=== PATIENT | female | born 1945 | race Caucasian/White ===

== ENCOUNTER → 2016-07-08 | Outpatient (CLI) | payer OTHER, MEDICARE ==
--- NOTE | 2016-07-08 17:01 | CR ---
EXAMINATION: Pelvis and left hip HISTORY: Pain COMPARISON: None TECHNIQUE: AP pelvis and 2 views of the left hip FINDINGS: There is no acute osseous abnormality, dislocation, or fracture identified. Bone mineraliz ation and joint spaces appear normal. SI joints appear symmetric. The iliopectineal lines are intact . IMPRESSION: Grossly unremarkable pelvis and right hip.
== END ==
LOC: MW.CHORTHO 07:45
PROVIDERS: ATTEND Orthopaedic Surgery
DX: M70.62 Trochanteric bursitis, left hip (principal)
CPT/HCPCS: 20610; 73502; G0463; J1040

== ENCOUNTER 2017-07-14 15:20 | Emergency (ER) | payer MEDICARE, OTHER ==
--- NOTE | 2017-07-14 15:45 | EDM.PDOC ---
ED HPI GENERAL MEDICAL PROBLEM - General Chief Complaint: General Stated Complaint: PT LIPS ARE SWOLLEN Time Seen by Provider: 07/14/17 15:22 Source of Information: Reports: Patient History Limitations: Reports: No Limitations - History of Present Illness INITIAL COMMENTS - FREE TEXT/NARRATIVE: History of present illness: []Patient started having swelling of her upper lip at 11:00 in her lower lip around 2:00. She took Benadryl prior to arrival and is showing some improvement. She denies having any itchiness of her tongue, difficulty swallowing or difficulty breathing at any time. They think she can think of that is new is using Biofreeze today. Review of systems: As per history of present illness and below otherwise all systems reviewed and negative. Past medical history: As per history of present illness and as reviewed below otherwise noncontributory. Surgical history: As per history of present illness and as reviewed below otherwise noncontributory. Social history: No reported history of drug or alcohol abuse. Family history: As per history of present illness and as reviewed below otherwise noncontributory. Physical exam: General: Well developed, well nourished in NAD HEENT: Atraumatic, mild edema of her lips lower worse than the upper. There is no tongue swelling, pupils reactive, negative for conjunctival pallor or scleral icterus, mucous membranes moist, throat clear, neck supple, nontender, trachea midline. No stridor Lungs: Clear to auscultation, breath sounds equal bilaterally, chest nontender. No wheezing Heart: S1S2, regular, negative for clicks, rubs, or JVD. Abdomen: Soft, nondistended, nontender. Negative for masses or hepatosplenomegaly. Negative for costovertebral tenderness. Pelvis: Stable nontender. Genitourinary: Deferred. Rectal: Deferred. Extremities: Atraumatic, negative for cords or calf pain. Neurovascular unremarkable. Neuro: Awake, alert, oriented. Cranial nerves II through XII unremarkable. Cerebellum unremarkable. Motor and sensory unremarkable throughout. Exam nonfocal. skin: No rashes Diagnostics: [] Therapeutics: [] Impression: []Allergic reaction Plan: []Benadryl every 4 hours follow up with primary care if any difficulty breathing or swallowing or itching of tong occurs return to ER. Definitive disposition and diagnosis as appropriate pending reevaluation and review of above. bilateral thumbs Pain Score (Numeric/FACES): 4 - Related Data Allergies Allergy/AdvReac Type Severity Reaction Status Date / Time acetaminophen [From Vicodin] Allergy Vomiting Verified 07/14/17 15:51 gabapentin Allergy Irritabilit Verified 07/14/17 15:51 y hydrocodone bitartrate Allergy Vomiting Verified 07/14/17 15:51 [From Vicodin] tramadol HCl [From Ultram] Allergy Vomiting Verified 07/14/17 15:51 Home Meds: Home Meds Erythromycin Base [Erythromycin 0.5% Ophth Oint] 1 applic PO DAILY 04/30/15 [ History] Past Medical History HEENT History: Reports: Hard of Hearing Other HEENT History: Hearing aid on Right Gastrointestinal History: Reports: Colon Polyp, Other (See Below) Other Gastrointestinal History: hx: Gastric Ulcer Musculoskeletal History: Reports: Fibromyalgia Other Musculoskeletal History: hx Fracture to Left ankle Neurological History: Reports: Migraines Other Neuro History: No migraines for years but still get headaches Endocrine/Metabolic History: Reports: Hyperparathyroidism Other Endocrine/Metabolic History: hx;: Surgery for excision of Parathyroid gland - Past Surgical History Female Surgical History: Reports: Hysterectomy Social & Family History - Tobacco Use Smoking Status *Q: Never Smoker - Recreational Drug Use Recreational Drug Use: No Drug Use in Last 12 Months: No ED ROS GENERAL - Review of Systems Review Of Systems: See Below (See history of present illness) ED EXAM, GENERAL - Physical Exam Exam: See Below (See history of present illness) Course - Vital Signs Last Recorded V/S: Last Vital Signs Temp 97.8 F 07/14/17 15:49 Pulse 68 07/14/17 15:49 Resp 18 07/14/17 15:49 BP 132/65 07/14/17 15:49 Pulse Ox 95 07/14/17 15:49 Departure - Departure Time of Disposition: 16:04 Disposition: Home, Self-Care 01 Condition: Good Clinical Impression: Allergic reaction Qualifiers: Encounter type: initial encounter Qualified Code(s): T78.40XA - Allergy, unspecified, initial encounter - Discharge Information Referrals: Alistair Cisneros MD [Primary Care Provider] - Forms: ED Department Discharge Additional Instructions: The following information is given to patients seen in the emergency department who are being discharged to home. This information is to outline your options for follow-up care. We provide all patients seen in our emergency department with a follow-up referral. The need for follow-up, as well as the timing and circumstances, are variable depending upon the specifics of your emergency department visit. If you don't have a primary care physician on staff, we will provide you with a referral. We always advise you to contact your personal physician following an emergency department visit to inform them of the circumstance of the visit and for follow-up with them and/or the need for any referrals to a consulting specialist. The emergency department will also refer you to a specialist when appropriate. This referral assures that you have the opportunity for follow-up care with a specialist. All of these measure are taken in an effort to provide you with optimal care, which includes your follow-up. Under all circumstances we always encourage you to contact your private physician who remains a resource for coordinating your care. When calling for follow-up care, please make the office aware that this follow-up is from your recent emergency room visit. If for any reason you are refused follow-up, please contact the [facility] Emergency Department at and asked to speak to the emergency department charge nurseMikey Cowart every 4 hours follow up with primary care return immediately to ER if any itching of the tongue or throat, shortness of breath or difficulty swallowing occurs. [facility] [address] [place] [id number]
[2017-07-14 15:51] VITALS: BP 132/65
== END 2017-07-14 16:12 | disposition home or self-care (01) ==
LOC: MW.ED 15:20
DX: T78.40XA Allergy, unspecified, initial encounter (principal); R60.0 Localized edema; Z88.1 Allergy status to other antibiotic agents; Z88.5 Allergy status to narcotic agent; X58.XXXA Exposure to other specified factors, initial encounter
CPT/HCPCS: 99282; 99283

== ENCOUNTER 2017-11-24 07:39 | Day surgery (SDC) | payer MEDICARE, OTHER ==
[~2017-11-24 07:39] MED LIST: Bupivacaine 25%/EPINEPHrine/PF 30 ML ONE; Dexamethasone/Tobramycin 0.1-0.3% Ophth Oint 3.5 GM Tube ONE; Dexamethasone/Tobramycin 0.1-0.3% Ophth Susp 2.5 ML Bottle ONE; Lidocaine 2% 5 ML SDV ONE; Octyl 2-Cyanoacrylate 1 Tube ONE; Propofol 200 MG/20 ML SDV ONE; Tetracaine 0.5% Ophth Soln 15 ML Bottle ONE; Triamcinolone Acetonide 40 MG/ML 1 ML MDV ONE; ceFAZolin/Dextrose,Iso-Osmotic 2 GM/50 ML Duplex Bag IV ONE; fentaNYL 100 MCG/2 ML SDV ONE
[2017-11-24] MEDS ORDERED: ceFAZolin 2 GM in Premix Bag 1 BAG IV ONE (08:00)
[2017-11-24] MEDS ORDERED: Bupivacaine 0.25%/EPINEPHrine 1:200,000 10 ML SDV INJECT ONE (08:00)
[2017-11-24] MEDS ORDERED: Lactated Ringers 1,000 ML IV SCH (08:00)
--- NOTE | 2017-11-24 08:13 | PCM.PREANE ---
Preanesthetic Assessment - Anesthesia/Transfusion/Family Hx Anesthesia History: Prior Anesthesia Without Reaction Other Type of Anesthesia Reaction Comment: Denies any known problem in the past Family History of Anesthesia Reaction: No Transfusion History: No Prior Transfusion(s) Intubation History: Unknown - Review of Systems General: No Symptoms Pulmonary: No Symptoms Cardiovascular: No Symptoms Gastrointestinal: No Symptoms Neurological: No Symptoms Other: Reports: None - Physical Assessment Height: 1.7 m Weight: 81.647 kg ASA Class: 2 Mental Status: Alert & Oriented x3 Airway Class: Mallampati = 2 Dentition: Reports: Normal Dentition Thyro-Mental Finger Breadths: 2 Mouth Opening Finger Breadths: 2 ROM/Head Extension: Limited/Partial Lungs: Clear to Auscultation, Normal Respiratory Effort Cardiovascular: Regular Rate, Regular Rhythm - Allergies Allergies/Adverse Reactions: Allergies Allergy/AdvReac Type Severity Reaction Status Date / Time acetaminophen [From Vicodin] Allergy Vomiting Verified 11/19/17 13:01 gabapentin Allergy Irritabilit Verified 11/19/17 13:01 y hydrocodone bitartrate Allergy Vomiting Verified 11/19/17 13:01 [From Vicodin] tramadol HCl [From Ultram] Allergy Vomiting Verified 11/19/17 13:01 - Blood Blood Available: No - Anesthesia Plan Pre-Op Medication Ordered: None - Acknowledgements Anesthesia Type Planned: MAC Pt an Appropriate Candidate for the Planned Anesthesia: Yes Alternatives and Risks of Anesthesia Discussed w Pt/Guardian: Yes Pt/Guardian Understands and Agrees with Anesthesia Plan: Yes PreAnesthesia Questionnaire HEENT History: Reports: Hard of Hearing, Other (See Below) Other HEENT History: Hearing aids stephanie, wears glasses Gastrointestinal History: Reports: Colon Polyp, Other (See Below) Other Gastrointestinal History: hx: Gastric Ulcer, diverticulosis, h/o dysphagia - now ok Genitourinary History: Reports: None RECEP History: Reports: Musculoskeletal History: Reports: Arthritis, Fracture, Fibromyalgia Other Musculoskeletal History: hx Fracture to Left ankle Neurological History: Reports: Migraines Other Neuro History: No migraines for years but still get headaches Endocrine/Metabolic History: Reports: Hyperparathyroidism Other Endocrine/Metabolic History: hx;: Surgery for excision of Parathyroid gland - Infectious Disease History Infectious Disease History: Reports: Chicken Pox, Measles - Past Surgical History Head Surgeries/Procedures: Reports: None HEENT Surgical History: Reports: Cataract Surgery GI Surgical History: Reports: Appendectomy, Cholecystectomy, Colonoscopy Female Surgical History: Reports: Hysterectomy Musculoskeletal Surgical History: Reports: Carpal Tunnel, Other (See Below) ( foot surgery) Other Surgical History Comment: parathyroidectomy - SUBSTANCE USE Smoking Status *Q: Never Smoker Recreational Drug Use History: No - HOME MEDS Home Medications: Home Meds Erythromycin Base [Erythromycin 0.5% Ophth Oint] 1 applic PO BEDTIME 04/30/15 [ History] Aspirin 1 tab PO ASDIRECTED PRN 11/19/17 [History] Ibuprofen 2 tab PO ASDIRECTED PRN 11/19/17 [History] - CURRENT (IN HOUSE) MEDS Current Meds: Current Medications Cefazolin Sodium/Dextrose 2 gm (/ Premix) 50 mls @ 100 mls/hr IV ONETIME ONE Stop: 11/24/17 08:29 Lactated Ringer's (Ringers, Lactated) 1,000 mls @ 125 mls/hr IV ASDIRECTED DEIRDRE Discontinued Medications Bupivacaine HCl/Epinephrine Bitart (Marcaine 0.25%/Epinephrine 1:200,000) 10 ml INJECT ONETIME ONE Stop: 11/24/17 08:01 Cefazolin Sodium/Dextrose (Ancef) Confirm Administered Dose 2 gm IV .STK-MED ONE Stop: 11/24/17 07:33 Fentanyl (Sublimaze) Confirm Administered Dose 100 mcg .ROUTE .STK-MED ONE Stop: 11/24/17 07:36 Bupivacaine HCl/Epinephrine Bitart (Sensorc Mpf 0.25%-Epi 1:[id number]) Confirm Administered Dose 30 mls @ as directed .ROUTE .STK-MED ONE Stop: 11/24/17 07:25 Lidocaine (Xylocaine-Mpf 2%) Confirm Administered Dose 5 ml .ROUTE .STK-MED ONE Stop: 11/24/17 07:36 Octyl Cyanoacrylate (Dermabond Advance) Confirm Administered Dose 1 applic .ROUTE .STK-MED ONE Stop: 11/24/17 07:25 Propofol (Diprivan 20 Ml) Confirm Administered Dose 400 mg .ROUTE .STK-MED ONE Stop: 11/24/17 07:36 Tetracaine (Tetracaine 0.5% Ophth Soln) Confirm Administered Dose 15 ml .ROUTE .STK-MED ONE Stop: 11/24/17 07:25 Tobramycin/Dexamethasone (Tobradex Ophth Oint) Confirm Administered Dose 3.5 gm .ROUTE .STK-MED ONE Stop: 11/24/17 07:25 Tobramycin/Dexamethasone (Tobradex Ophth Susp) Confirm Administered Dose 2.5 ml .ROUTE .STK-MED ONE Stop: 11/24/17 07:25 Tobramycin/Dexamethasone (Tobradex Ophth Oint) Confirm Administered Dose 3.5 gm .ROUTE .STK-MED ONE Stop: 11/24/17 07:30 Triamcinolone Acetonide (Kenalog-40) Confirm Administered Dose 40 mg .ROUTE .STK -MED ONE Stop: 11/24/17 07:25
--- NOTE | 2017-11-24 08:32 | PCM.POSTAN ---
POST ANESTHESIA ASSESSMENT - MENTAL STATUS Mental Status: Alert, Oriented - VITAL SIGNS Pulse Rate: 86 SaO2: 93 Resp Rate: 18 - RESPIRATORY Respiratory Status: Respiratory Rate WNL, Airway Patent, O2 Saturation Stable - CARDIOVASCULAR CV Status: Pulse Rate WNL, Blood Pressure Stable - GASTROINTESTINAL GI Status: No Symptoms - PAIN Pain Score: 6 (getting additional fentanyl currently) - POST OP HYDRATION Hydration Status: Adequate & Stable
[2017-11-24] MEDS ORDERED: diphenhydrAMINE 50 MG/ML SDV ONE (08:37)
--- NOTE | 2017-11-24 10:28 | PCM.POSTAN ---
POST ANESTHESIA ASSESSMENT - MENTAL STATUS Mental Status: Alert, Oriented - RESPIRATORY Respiratory Status: Respiratory Rate WNL, Airway Patent, O2 Saturation Stable - CARDIOVASCULAR CV Status: Pulse Rate WNL, Blood Pressure Stable - GASTROINTESTINAL GI Status: No Symptoms - PAIN Pain Score: 0 - POST OP HYDRATION Hydration Status: Adequate & Stable - OBSERVATIONS Free Text/Narrative:: no anesthesia problems, previous postop, assessment has incorrect timing
[2017-11-24 10:42] VITALS: BP 117/69
--- NOTE | 2017-11-24 10:45 | PCM48HPAN ---
Post Anesthesia Note - EVALUATION WITHIN 48HRS OF ANESTHETIC Vital Signs in Normal Range: Yes Patient Participated in Evaluation: Yes Respiratory Function Stable: Yes Airway Patent: Yes Cardiovascular Function Stable: Yes Hydration Status Stable: Yes Pain Control Satisfactory: Yes Nausea and Vomiting Control Satisfactory: Yes Mental Status Recovered: Yes Pulse Rate: 86 Resp Rate: 15 - COMMENTS/OBSERVATIONS Free Text/Narrative:: no anesthesia problems
--- NOTE | 2017-11-25 09:53 | PCM.OPNOTE ---
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 Post-Op Diagnosis: Same Anesthesia Technique: Local, MAC Primary Surgeon: Ivania Cohen Casino Shift Manager: Mami Sauer Reason Casino Shift Manager Was Necessary: retraction prepping draping and closure assistance. Condition: Good
--- NOTE | 2017-11-26 00:53 | OR ---
SURGEON: DENISSE MCKEON MD DATE OF PROCEDURE: 11/24/2017 PREOPERATIVE DIAGNOSES: 1. Bilateral upper lid dermatochalasis. 2. Left thumb carpometacarpal arthritis. POSTOPERATIVE DIAGNOSES: 1. Bilateral upper lid dermatochalasis. 2. Left thumb carpometacarpal arthritis. PROCEDURES: 1. Bilateral upper lid blepharoplasty for excess skin. 2. Injection of left thumb carpometacarpal joint with 1 mL of Kenalog 40. ANESTHESIA: Local MAC. PULPER OPERATOR: MINA Garzon REASON PULPER OPERATOR WAS NECESSARY: Retraction, prepping, draping, and closure assistance. INDICATIONS: This is a 72-year-old female, seen today in evaluation for bilateral upper lid dermatochalasis causing visual obstruction. She also has left thumb CMC arthritis and would like an injection here. Risks and benefits were discussed including, but not limited to, bleeding, infection, damage to underlying or overlying structures, possible need for future interventions, possible scarring. PROCEDURE IN DETAIL: After informed consent was obtained and placed on the chart, the patient was brought to the operating theater and laid in the supine position. After adequate local MAC anesthesia was obtained, the area was prepped and draped and a time-out was completed to confirm site and side after adequate marking of the bilateral upper lid blepharoplasty planned incision, a 1 cm of skin was left on the upper lid and 1 cm above this as well. After markings were confirmed, the area was injected with 0.25% Marcaine with epinephrine in a field block. Attention was then paid to dissection through the skin using #15 blade and Bovie electrocautery for meticulous hemostasis. The elliptical standard excision was made, and after meticulous hemostasis with Bovie electrocautery, the wound was closed using a 5-0 Monocryl stitch for deep dermal and a running 6-0 Prolene for the skin. These were Steri-Stripped in place, and the symmetry procedure was completed on the opposite side as well. Once the symmetry was completed, attention was then paid to Steri-Stripping the sutures in place and injection of the left thumb CMC joint under aseptic technique with 1 mL of Kenalog 40. She tolerated this well. It was dressed with a Band-Aid. FOLLOWUP INSTRUCTIONS: The patient will see us in one week in clinic or sooner if any problems, questions, or concerns. APRIL / MODL /[id number]
== END 2017-11-24 10:50 | disposition home or self-care (01) ==
LOC: MW.SDS 07:39
PROVIDERS: ATTEND Plastic Surgery
DX: H02.834 Dermatochalasis of left upper eyelid (principal); H02.831 Dermatochalasis of right upper eyelid; M18.9 Osteoarthritis of first carpometacarpal joint, unspecified; Z79.899 Other long term (current) drug therapy; Z88.8 Allergy status to other drugs, medicaments and biological substances; Z88.5 Allergy status to narcotic agent
CPT/HCPCS: 15822; 20600; A9270; J0690; J1200; J2704; J3010; J3301; J7120